=== PATIENT | female | born 1960 | race Caucasian/White ===

== ENCOUNTER → 2016-03-02 | Outpatient (CLI) | payer BC ==
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
== END ==
LOC: WI 09:00
PROVIDERS: ATTEND Family Medicine
DX: N63 Unspecified lump in breast (principal)
CPT/HCPCS: 76642; G0204; 77066

== ENCOUNTER 2016-08-13 06:18 | Inpatient (IN) | payer BC ==
--- NOTE | 2016-08-06 11:02 | EKG REPORT ---
SEVERITY:- ABNORMAL ECG - SINUS RHYTHM NONSPECIFIC T ABNORMALITIES, INFERIOR LEADS : Confirmed by: Carlene Mcrae MD 06-Aug-2016 11:01:08
--- NOTE | 2016-08-06 11:05 | RADIOLOGY REPORT (SQ) ---
EXAM DESCRIPTION: CHEST PA/LATERAL COMPLETED DATE/TIME: 08/06/2016 10:45 am REASON FOR STUDY: PRE OP COMPARISON: None. EXAM PARAMETERS: NUMBER OF VIEWS: two views TECHNIQUE: Digital Frontal and Lateral radiographic views of the chest acquired. RADIATION DOSE: NA LIMITATIONS: none FINDINGS: LUNGS AND PLEURA: No opacities, masses or pneumothorax. No pleural effusion. MEDIASTINUM AND HILAR STRUCTURES: No masses or contour abnormalities. HEART AND VASCULAR STRUCTURES: Heart normal size. No evidence for failure. BONES: No acute findings. HARDWARE: None in the chest. OTHER: No other significant finding. IMPRESSION: NO SIGNIFICANT RADIOGRAPHIC FINDING IN THE CHEST. TECHNICAL DOCUMENTATION: JOB ID: [id number] [employer]- All Rights Reserved
[2016-08-06 11:08] LABS: ABSOLUTE EOSINOPHILS # (AUTO) 0.2 10^3/uL (0.0-0.6); ABSOLUTE LYMPHOCYTES (AUTO) 2.6 10^3/uL (0.5-4.7); ABSOLUTE MONOCYTES (AUTO) 0.7 10^3/uL (0.1-1.4); ABSOLUTE NEUT (AUTO) 4.5 10^3/uL (1.7-8.2); BASOPHILS % (AUTO) 0.6 % (0-2); EOSINOPHILS % (AUTO) 2.3 % (0-6); HEMATOCRIT 39.3 % (36.0-47.0); HEMOGLOBIN 13.4 g/dL (12.0-15.5); HGB HCT DIFFERENCE 0.9; LYMPHOCYTES % (AUTO) 32.2 % (13-45); MEAN CORPUSCULAR HEMOGLOBIN 30.9 pg (27.0-33.4); MEAN CORPUSCULAR VOLUME 91 fl (80-97); MONOCYTES % (AUTO) 8.8 % (3-13); RED BLOOD COUNT 4.33 10^6/uL (3.72-5.28); SEGMENTED NEUTROPHILS % (AUTO) 56.1 % (42-78)
[2016-08-06 11:24] LABS: ANION GAP 12 (5-19); BLOOD UREA NITROGEN 21 mg/dL (7-20); CALCIUM 9.3 mg/dL (8.4-10.2); CARBON DIOXIDE 25 mmol/L (22-30); CHLORIDE 103 mmol/L (98-107); CREATININE RESULT 0.64 mg/dL (0.52-1.25); GLUCOSE 108 mg/dL (75-110); POTASSIUM 4.6 mmol/L (3.6-5.0)
[2016-08-06 12:10] LABS: APPEARANCE,URINE CLOUDY; BILIRUBIN,URINE NEGATIVE (NEGATIVE); GLUCOSE, URINE NEGATIVE (NEGATIVE); KETONES,URINE NEGATIVE (NEGATIVE); URINE SPECIFIC GRAVITY 1.024
[2016-08-06 12:11] LABS: BACTERIA,URINE 3+ /HPF; LEUKOCYTE ESTERASE,URINE NEGATIVE (NEGATIVE); NITRITE,URINE NEGATIVE (NEGATIVE); PROTEIN,URINE NEGATIVE (NEGATIVE); RBC,URINE NONE SEEN /HPF; UROBILINOGEN,URINE NEGATIVE mg/dL (<2.0)
[~2016-08-13 06:18] MED LIST: CEFAZOLIN 2 GM/D5W RTU 2 GM/50 ML RTUPB IV PRN; LACTATED RINGERS 1000 ML IV PRN; LIDOCAINE 0.5% INJ-PF (5 MG/ML) 50 ML SDV SUBCUT PRN
[2016-08-13] MEDS ORDERED: MIDAZOLAM 2 MG/2 ML INJ ONE (12:24)
[2016-08-13] MEDS ORDERED: MORPHINE SULFATE 10 MG/ML INJ ONE ×2 (12:25→14:58)
[2016-08-13] MEDS ORDERED: IBUPROFEN INJ 800 MG/8 ML VIAL IV ONE (12:25)
[2016-08-13] MEDS ORDERED: PROPOFOL INJ 200 MG/20 ML VIAL IV ONE (12:25)
[2016-08-13] MEDS ORDERED: PROMETHAZINE HCL INJ 25 MG/1 ML VIAL IV PRN ×2 (15:20)
[2016-08-13] MEDS ORDERED: MORPHINE SULFATE 10 MG/ML INJ IV PRN ×4 (15:20→17:02)
[2016-08-13] MEDS ORDERED: MEPERIDINE HCL/PF INJ 25 MG/1 ML DISP.SYRIN IV PRN (15:20)
[2016-08-13] MEDS ORDERED: OXYCODONE-ACETAMINOPHEN 5-325 MG TABLET PO PRN ×2 (15:20)
[2016-08-13] MEDS ORDERED: FENTANYL CITRATE INJ/PF 100 MCG/2 ML AMPUL IV PRN ×3 (15:20)
[2016-08-13] MEDS ORDERED: DIPHENHYDRAMINE HCL 50 MG/ML VIAL IV PRN ×2 (15:20→17:02)
[2016-08-13] MEDS ORDERED: ONDANSETRON 4 MG TAB.RAPDIS PO PRN (17:02)
[2016-08-13] MEDS ORDERED: MORPHINE SULFATE 10 MG/ML INJ IM PRN (17:02)
--- NOTE | 2016-08-13 17:09 | Brief Operative Note ---
BRIEF OPERATIVE REPORT DATE OF SURGERY: 08/13/16 TIME OF SURGERY: 17:07 PREOPERATIVE DIAGNOSIS: Left Femoral Shaft Nonunion POSTOPERATIVE DIAGNOSIS: Same SURGEON: DENYS WEISS FINDINGS: Nonunion fx site w/ micromotion COMPLICATIONS: None ESTIMATED BLOOD LOSS: 400cc TISSUE REMOVED OR ALTERED: None TECHNICAL PROCEDURE: Removal Hardware Left Femur w/ Revision Intramedullary Nailing (i.e. exchange nailing)
[2016-08-13] MEDS ORDERED: DEXAMETHASONE SOD PHOS INJ 10 MG/1 ML VIAL ONE (17:32)
[2016-08-13] MEDS ORDERED: ACETAMINOPHEN 100 ML IV ONE ×2 (17:52→23:00)
[2016-08-13] MEDS ORDERED: CYANOCOBALAMIN (VITAMIN B-12) 1,000 MCG TABLET PO PRN (18:00)
--- NOTE | 2016-08-13 18:00 | RADIOLOGY REPORT (SQ) ---
EXAM DESCRIPTION: NO CHG FLUORO; FEMUR LEFT COMPLETED DATE/TIME: 08/13/2016 5:48 pm REASON FOR STUDY: ORIF W/GAMMA NAIL LT FEMUR COMPARISON: None. FLUOROSCOPY TIME: 4.8 minutes RADIATION DOSE: 78.1 mGy LIMITATIONS: None. PROCEDURE: 10 images obtained with fluoro document the open reduction and internal fixation of the d istal left femoral fracture. FINDINGS: Long medullary hermes is in place, secured by 2 cannulated screws through the femoral neck. 2 additional screws are present in the femoral metaphysis. IMPRESSION: Open reduction and internal fixation of distal left femoral fracture. COMMENT: [id number]: Fluoroscopy time of the procedure is documented in the report. TECHNICAL DOCUMENTATION: JOB ID: [id number] [employer]- All Rights Reserved
--- NOTE | 2016-08-13 18:00 | RADIOLOGY REPORT (SQ) ---
EXAM DESCRIPTION: NO CHG FLUORO; FEMUR LEFT COMPLETED DATE/TIME: 08/13/2016 5:48 pm REASON FOR STUDY: ORIF W/GAMMA NAIL LT FEMUR COMPARISON: None. FLUOROSCOPY TIME: 4.8 minutes RADIATION DOSE: 78.1 mGy LIMITATIONS: None. PROCEDURE: 10 images obtained with fluoro document the open reduction and internal fixation of the d istal left femoral fracture. FINDINGS: Long medullary hermes is in place, secured by 2 cannulated screws through the femoral neck. 2 additional screws are present in the femoral metaphysis. IMPRESSION: Open reduction and internal fixation of distal left femoral fracture. COMMENT: [id number]: Fluoroscopy time of the procedure is documented in the report. TECHNICAL DOCUMENTATION: JOB ID: [id number] [employer]- All Rights Reserved
[2016-08-13] MEDS ORDERED: PHENYLEPHRINE HCL INJ/PF 10 MG/1 ML SDV ONE (18:55)
[2016-08-13] MEDS ORDERED: METOCLOPRAMIDE HCL INJ/PF 10 MG/2 ML SDV ONE (18:55)
[2016-08-13] MEDS ORDERED: ONDANSETRON HCL INJ/PF 4 MG/2 ML SDV ONE (18:55)
[2016-08-13] MEDS ORDERED: NEOSTIGMINE METHYLSULFATE 10 MG/10 ML VIAL ONE (18:55)
[2016-08-13] MEDS ORDERED: LIDOCAINE 2% INJ-PF (20 MG/ML) 10 ML AMPUL ONE (18:55)
[2016-08-13] MEDS ORDERED: GLYCOPYRROLATE INJ 0.4 MG/2 ML VIAL ONE (18:55)
[2016-08-13] MEDS: RIVAROXABAN 10 MG TABLET PO SCH (22:28)
[2016-08-13] MEDS: ATORVASTATIN CALCIUM 40 MG TABLET PO SCH (22:38)
[2016-08-13] MEDS: CEFAZOLIN 2 GM/D5W RTU 2 GM/50 ML RTUPB IV SCH (22:39)
[2016-08-13] MEDS: RINGERS SOLUTION,LACTATED 1,000 ML IV PRN (22:39)
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
[2016-08-14] MEDS: OXYCODONE HCL SR 10 MG TABLET PO SCH ×4 (01:23→22:00)
[2016-08-14] MEDS: CEFAZOLIN 2 GM/D5W RTU 2 GM/50 ML RTUPB IV SCH ×4 (04:20→21:16)
[2016-08-14] MEDS: OXYCODONE HCL IR 5 MG TABLET PO PRN (04:20)
[2016-08-14] MEDS: LANSOPRAZOLE 30 MG TAB.RAP.DR PO SCH (06:10)
[2016-08-14] MEDS: RINGERS SOLUTION,LACTATED 1,000 ML IV PRN ×2 (06:16→17:58)
[2016-08-14 06:27] LABS: HEMATOCRIT 31.7 % (36.0-47.0); HEMOGLOBIN 10.5 g/dL (12.0-15.5); HGB HCT DIFFERENCE -0.2; MEAN CORPUSCULAR HEMOGLOBIN 30.4 pg (27.0-33.4); MEAN CORPUSCULAR HGB CONC 33.2 g/dL (32.0-36.0); MEAN CORPUSCULAR VOLUME 92 fl (80-97); RED BLOOD COUNT 3.46 10^6/uL (3.72-5.28); RED CELL DISTRIBUTION WIDTH 13.7 % (11.5-14.0); WHITE BLOOD COUNT 10.9 10^3/uL (4.0-10.5)
[2016-08-14 06:46] LABS: ANION GAP 11 (5-19); BLOOD UREA NITROGEN 19 mg/dL (7-20); CALCIUM 8.6 mg/dL (8.4-10.2); CARBON DIOXIDE 23 mmol/L (22-30); CHLORIDE 102 mmol/L (98-107); CREATININE RESULT 0.67 mg/dL (0.52-1.25); GLUCOSE 152 mg/dL (75-110); POTASSIUM 4.4 mmol/L (3.6-5.0); SODIUM 135.7 mmol/L (137-145)
[2016-08-14] MEDS: CHOLECALCIFEROL (D3) 1,000 UNIT TABLET PO SCH (09:41)
[2016-08-14] MEDS: FLUTICASONE/SALMETEROL DISKUS 250-50 MCG/DOSE IH SCH ×2 (09:41→17:55)
[2016-08-14] MEDS: FERROUS SULFATE 325 MG TABLET PO SCH ×2 (09:41→17:55)
[2016-08-14] MEDS: PREGABALIN 75 MG CAPSULE PO SCH ×2 (09:41→17:55)
[2016-08-14] MEDS: HYDROCHLOROTHIAZIDE 12.5 MG CAPSULE PO SCH (09:56)
[2016-08-14] MEDS: LISINOPRIL 10 MG TABLET PO SCH (09:56)
[2016-08-14] MEDS: MUPIROCIN 2% OINTMENT 22 GM TP SCH ×3 (09:56→17:56)
[2016-08-14] MEDS ORDERED: (PENDING PHARMACY ID) (Lisinopril/Hydrochlorothiazide [Lisinopril-Hctz 20-12.5 Mg Tab] 2 E PO SCH (10:00)
[2016-08-14] MEDS ORDERED: CHOLECALCIFEROL (D3) 1,000 UNIT TABLET PO SCH (10:00)
--- NOTE | 2016-08-14 10:37 | PDOC PROGRESS REPORT ---
Subjective Progress Note for:: 08/14/16 Subjective:: Patient seen this AM. Pain controlled. Patient's blood pressure has been running low but she denies headache dizziness or loss of consciousness. Physical Exam Vital Signs: Temp Pulse Resp BP Pulse Ox 98.1 F 80 16 99/40 L 92 08/14/16 08:01 08/14/16 08:01 08/14/16 08:01 08/14/16 08:01 08/14/16 08:01 Pulse Oximeter Continuous Start: 08/13/16 19: 50 Freq: RTQ4 Status: Active Document 08/14/16 04:23 TPO (Rec: 08/14/16 04:23 TPO [email or web address]) Pulse Oximetry Assessment Oxygen Saturation (92-100) 96 Oxygen Flow Rate (L/min) 2 Oxygen Delivery Method Nasal Cannula Fraction of Inspired Oxygen (FIO2) 28 Equipment Usage Equipment in Use Continuous SpO2 Machine # [id number] Intake & Output 08/13/16 08/14/16 08/15/16 06:59 06:59 06:59 Intake Total 3050 Output Total 2300 Balance 750 Weight 131.9 kg Musculoskeletal exam: PRESENT: other - Right lower extremity: Dressing clean/dry /intact. Blood-tinged drainage. Intact plantar flexion/dorsiflexion. No calf tenderness Results Laboratory Results: 08/14/16 05:55 08/14/16 05:55 08/13/16 08/13/16 08/14/16 11:05 14:37 05:55 WBC 10.9 H RBC 3.46 L Hgb 10.5 L Hct 31.7 L MCV 92 MCH 30.4 MCHC 33.2 RDW 13.7 Plt Count 220 Sodium Potassium 4.3 Chloride Carbon Dioxide Anion Gap BUN Creatinine Est GFR ( Amer) Est GFR (Non-Af Amer) Glucose Calcium Blood Type A POSITIVE Antibody Screen NEGATIVE 08/14/16 05:55 WBC RBC Hgb Hct MCV MCH MCHC RDW Plt Count Sodium 135.7 L Potassium 4.4 Chloride 102 Carbon Dioxide 23 Anion Gap 11 BUN 19 Creatinine 0.67 Est GFR ( Amer) > 60 Est GFR (Non-Af Amer) > 60 Glucose 152 H Calcium 8.6 Blood Type Antibody Screen Impressions: Chest X-Ray 08/06/16 10:34 IMPRESSION: NO SIGNIFICANT RADIOGRAPHIC FINDING IN THE CHEST. Femur X-Ray 08/13/16 00:00 IMPRESSION: Open reduction and internal fixation of distal left femoral fracture. Fluoroscopy 08/13/16 00:00 IMPRESSION: Open reduction and internal fixation of distal left femoral fracture. Assessment & Plan - Diagnosis (1) Femur fracture, left Qualifiers: Encounter type: subsequent encounter Femur location: shaft Fracture type: closed Fracture morphology: comminuted Fracture alignment : displaced Fracture healing: with nonunion Qualified Code(s): S72.352K - Displaced comminuted fracture of shaft of left femur, subsequent encounter for closed fracture with nonunion Is this a current diagnosis for this admission?: YesPlan: Postop day #1 status post revision intramedullary nailing left femoral shaft fracture #1 physical therapy flatfoot weightbearing #2 acute on chronic blood loss anemia hemoglobin and hematocrit currently stable #3 Xarelto for DVT prophylaxis #4 discharge planning patient will require home health anticipate discharge Tuesday.
[2016-08-14] MEDS: RIVAROXABAN 10 MG TABLET PO SCH (21:16)
[2016-08-14] MEDS: ATORVASTATIN CALCIUM 40 MG TABLET PO SCH (21:16)
[2016-08-15] MEDS: CEFAZOLIN 2 GM/D5W RTU 2 GM/50 ML RTUPB IV SCH ×4 (04:05→21:18)
[2016-08-15] MEDS: LANSOPRAZOLE 30 MG TAB.RAP.DR PO SCH (06:22)
[2016-08-15 07:39] LABS: HEMATOCRIT 27.6 % (36.0-47.0); HEMOGLOBIN 8.9 g/dL (12.0-15.5); HGB HCT DIFFERENCE -0.9; MEAN CORPUSCULAR HEMOGLOBIN 29.9 pg (27.0-33.4); MEAN CORPUSCULAR HGB CONC 32.2 g/dL (32.0-36.0); MEAN CORPUSCULAR VOLUME 93 fl (80-97); RED BLOOD COUNT 2.97 10^6/uL (3.72-5.28); RED CELL DISTRIBUTION WIDTH 13.9 % (11.5-14.0); WHITE BLOOD COUNT 12.1 10^3/uL (4.0-10.5)
[2016-08-15] MEDS: FERROUS SULFATE 325 MG TABLET PO SCH ×2 (08:37→17:04)
[2016-08-15] MEDS: PREGABALIN 75 MG CAPSULE PO SCH ×2 (10:24→17:04)
[2016-08-15] MEDS: OXYCODONE HCL IR 5 MG TABLET PO PRN (10:24)
[2016-08-15] MEDS: FLUTICASONE/SALMETEROL DISKUS 250-50 MCG/DOSE IH SCH ×2 (10:24→17:04)
[2016-08-15] MEDS: CHOLECALCIFEROL (D3) 1,000 UNIT TABLET PO SCH (10:24)
[2016-08-15] MEDS: LISINOPRIL 10 MG TABLET PO SCH (10:32)
[2016-08-15] MEDS: MUPIROCIN 2% OINTMENT 22 GM TP SCH ×3 (10:32→17:02)
[2016-08-15] MEDS: HYDROCHLOROTHIAZIDE 12.5 MG CAPSULE PO SCH (10:32)
[2016-08-15] MEDS: RIVAROXABAN 10 MG TABLET PO SCH (21:18)
[2016-08-15] MEDS: ATORVASTATIN CALCIUM 40 MG TABLET PO SCH (21:18)
[2016-08-16] MEDS: CEFAZOLIN 2 GM/D5W RTU 2 GM/50 ML RTUPB IV SCH ×2 (03:27→08:54)
[2016-08-16] MEDS: LANSOPRAZOLE 30 MG TAB.RAP.DR PO SCH (05:51)
[2016-08-16 06:48] LABS: HEMATOCRIT 26.4 % (36.0-47.0); HEMOGLOBIN 8.8 g/dL (12.0-15.5); MEAN CORPUSCULAR HEMOGLOBIN 30.2 pg (27.0-33.4); MEAN CORPUSCULAR HGB CONC 33.3 g/dL (32.0-36.0); MEAN CORPUSCULAR VOLUME 91 fl (80-97); RED BLOOD COUNT 2.91 10^6/uL (3.72-5.28); RED CELL DISTRIBUTION WIDTH 13.9 % (11.5-14.0); WHITE BLOOD COUNT 10.2 10^3/uL (4.0-10.5)
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
[2016-08-16] MEDS: PREGABALIN 75 MG CAPSULE PO SCH (09:21)
[2016-08-16] MEDS: HYDROCHLOROTHIAZIDE 12.5 MG CAPSULE PO SCH (09:22)
[2016-08-16] MEDS: CHOLECALCIFEROL (D3) 1,000 UNIT TABLET PO SCH (09:22)
[2016-08-16] MEDS: LISINOPRIL 10 MG TABLET PO SCH (09:24)
[2016-08-16] MEDS: FERROUS SULFATE 325 MG TABLET PO SCH (09:24)
[2016-08-16] MEDS: FLUTICASONE/SALMETEROL DISKUS 250-50 MCG/DOSE IH SCH (09:25)
[2016-08-16] MEDS: MUPIROCIN 2% OINTMENT 22 GM TP SCH ×2 (09:26→13:03)
[2016-08-16 10:16] VITALS: BP 107/48
== END 2016-08-16 15:00 | disposition home health service (06) | DRG 499 ==
LOC: INOR 10:18 → EDSTATUS 12:30 → 4S 18:39
PROVIDERS: ADMIT Orthopaedic Surgery; ATTEND Orthopaedic Surgery
PROC: 0QW Lower Bones, Revision (ICD-10-PCS; principal; 2016-08-13 12:30)
DX: T84.195A Other mechanical complication of internal fixation device of left femur, initial encounter (principal); I10 Essential (primary) hypertension; E78.5 Hyperlipidemia, unspecified; G47.9 Sleep disorder, unspecified; Z79.899 Other long term (current) drug therapy; Z90.710 Acquired absence of both cervix and uterus
CPT/HCPCS: 01230; 36415; 71020; 80048; 81001; 84132; 85025; 85027; 86850; 86900; 86901; 93005; 93010; 94762; 94799; J0131; J0690; J1100; J1741; J2250; J2270; J2370; J2405; J2704; J2765; J3490; J7120

== ENCOUNTER 2019-01-12 18:11 | Emergency (ER) | payer BC, MEDICARE ==
--- NOTE | 2019-01-12 20:02 | ER Document Report ---
ED Medical Screen (RME) - General Chief Complaint: Chest Pain Stated Complaint: CHEST PAIN Time Seen by Provider: 01/12/19 19:53 Primary Care Provider: GREYSON LOZANO MD [Primary Care Provider] - Follow up as needed Notes: 58-year-old female with hypertension, hyperlipidemia, prediabetes who is morbidly obese presents to the emergency department with right-sided stabbing chest pain that radiates through to her back x2 days. Patient had a little associated nausea yesterday with no vomiting, no diaphoresis, no shortness of breath or dyspnea on exertion, unaware of her family history because she was "taken away from appearance". She is not a smoker Exam: Well-appearing no acute distress, lungs clear to auscultation in all christiansen, regular cardiac rate and rhythm no murmurs heard, no reproducible chest wall pain I have greeted and performed a rapid initial assessment of this patient. A comprehensive ED assessment and evaluation of the patient, analysis of test results and completion of medical decision making process will be conducted by an additional ED providers. TRAVEL OUTSIDE OF THE [place] IN LAST 30 DAYS: No - Related Data Allergies/Adverse Reactions: No Known Allergies Allergy (Verified 08/04/16 11:12) Home Medications: Lisinopril/ HCTZ 20-12mg. Meloxicam. Atorvastatin. Fluoxetine. Vit D. Metformin Past Medical History - Social History Frequency of alcohol use: None Drug Abuse: None - Past Medical History Cardiac Medical History: Reports: Hx Hypercholesterolemia, Hx Hypertension - meds x 2 years Denies: Hx Coronary Artery Disease, Hx Heart Attack Pulmonary Medical History: Reports: Hx Asthma Denies: Hx Bronchitis, Hx COPD, Hx Pneumonia Neurological Medical History: Denies: Hx Cerebrovascular Accident, Hx Seizures Musculoskeltal Medical History: Reports Hx Arthritis Psychiatric Medical History: Denies: Hx Depression Past Surgical History: Reports: Hx Hysterectomy. Denies: Hx Pacemaker - Immunizations Hx Diphtheria, Pertussis, Tetanus Vaccination: No Physical Exam - Vital signs Vitals: Temp Pulse Resp BP Pulse Ox 98.3 F 86 18 163/75 H 96 01/12/19 19:00 01/12/19 19:00 01/12/19 19:00 01/12/19 19:00 01/12/19 19:00 Course - Vital Signs Vital signs: Temp Pulse Resp BP Pulse Ox 98.3 F 86 18 163/75 H 96 01/12/19 19:00 01/12/19 19:00 01/12/19 19:00 01/12/19 19:00 01/12/19 19:00 Doctor's Discharge - Discharge Referrals: GREYSON LOZANO MD [Primary Care Provider] - Follow up as needed
--- NOTE | 2019-01-12 21:16 | RADIOLOGY REPORT (SQ) ---
EXAM DESCRIPTION: [facility]: XR CHEST 2 VIEWS Views: 2 CLINICAL HISTORY: 58 years Female, chest pain COMPARISON: 08/06/2016 FINDINGS: The lungs are clear. No pneumothorax or significant pleural effusion. Cardiomediastinal silhouette is within normal limits. Bony structures are unremarkable for age. IMPRESSION: 1. No acute cardiothoracic abnormality.
[2019-01-12 21:21] LABS: ABSOLUTE BASOPHILS # (AUTO) 0.1 10^3/uL (0.0-0.2); ABSOLUTE EOSINOPHILS # (AUTO) 0.2 10^3/uL (0.0-0.6); ABSOLUTE LYMPHOCYTES (AUTO) 3.8 10^3/uL (0.5-4.7); ABSOLUTE MONOCYTES (AUTO) 0.9 10^3/uL (0.1-1.4); ABSOLUTE NEUT (AUTO) 5.2 10^3/uL (1.7-8.2); BASOPHILS % (AUTO) 0.5 % (0-2); EOSINOPHILS % (AUTO) 1.9 % (0-6); HEMATOCRIT 41.4 % (36.0-47.0); LYMPHOCYTES % (AUTO) 37.6 % (13-45); MEAN CORPUSCULAR HEMOGLOBIN 30.7 pg (27.0-33.4); MEAN CORPUSCULAR HGB CONC 33.9 g/dL (32.0-36.0); MEAN CORPUSCULAR VOLUME 91 fl (80-97); MONOCYTES % (AUTO) 8.9 % (3-13); PLATELET COUNT 275 10^3/uL (150-450); RED BLOOD COUNT 4.57 10^6/uL (3.72-5.28); RED CELL DISTRIBUTION WIDTH 13.5 % (11.5-14.0); SEGMENTED NEUTROPHILS % (AUTO) 51.1 % (42-78); TOTAL CELLS COUNTED % (AUTO) 100 %; WHITE BLOOD COUNT 10.1 10^3/uL (4.0-10.5)
[2019-01-12 21:34] LABS: ALBUMIN 4.7 g/dL (3.5-5.0); ALKALINE PHOSPHATASE 102 U/L (38-126); ANION GAP 17 (5-19); ASPARTATE AMINO TRANSFERASE 46 U/L (14-36); BILIRUBIN,DIRECT 0.3 mg/dL (0.0-0.4); BILIRUBIN,TOTAL 0.6 mg/dL (0.2-1.3); BLOOD UREA NITROGEN 18 mg/dL (7-20); CALCIUM 10.3 mg/dL (8.4-10.2); CARBON DIOXIDE 25 mmol/L (22-30); CHLORIDE 99 mmol/L (98-107); GLUCOSE 135 mg/dL (75-110); POTASSIUM 4.4 mmol/L (3.6-5.0); TOTAL PROTEIN 8.2 g/dL (6.3-8.2)
[2019-01-12] MEDS ORDERED: ASPIRIN 325 MG TABLET PO ONE (22:11)
[2019-01-13 01:23] VITALS: BP 117/39
--- NOTE | 2019-01-13 01:27 | ER Document Report ---
ED General - General Chief Complaint: Chest Pain Stated Complaint: CHEST PAIN Time Seen by Provider: 01/12/19 19:53 Primary Care Provider: GREYSON LOZANO MD [Primary Care Provider] - Follow up as needed Notes: Patient is a 58-year-old female presents to the emergency department with right- sided sharp chest pain. States it started today. States it is intermittent in nature and she currently does not have it. States sometimes she feels as though it is in her right shoulder blade. Patient's denying any increase in pain with rotation or movement of her right shoulder. She is denying any injury or falls. States she does have a history of hypertension, hyperlipidemia, asthma. States she was told she was prediabetic but is not taking any medications for same. Patient's denying a smoking history. States she did have a stress test "years ago." Has never had a cardiac catheterization. TRAVEL OUTSIDE OF THE [place] IN LAST 30 DAYS: No - Related Data Allergies/Adverse Reactions: No Known Allergies Allergy (Verified 08/04/16 11:12) Home Medications: Lisinopril/ HCTZ 20-12mg. Meloxicam. Atorvastatin. Fluo xetine. Vit D. Metformin Past Medical History - General Information source: Patient - Social History Smoking Status: Never Smoker Frequency of alcohol use: None Drug Abuse: None Family History: Reviewed & Not Pertinent Patient has suicidal ideation: No Patient has homicidal ideation: No - Past Medical History Cardiac Medical History: Reports: Hx Hypercholesterolemia, Hx Hypertension - meds x 2 years Denies: Hx Coronary Artery Disease, Hx Heart Attack Pulmonary Medical History: Reports: Hx Asthma Denies: Hx Bronchitis, Hx COPD, Hx Pneumonia Neurological Medical History: Denies: Hx Cerebrovascular Accident, Hx Seizures Musculoskeletal Medical History: Reports Hx Arthritis Psychiatric Medical History: Denies: Hx Depression Past Surgical History: Reports: Hx Hysterectomy. Denies: Hx Pacemaker - Immunizations Hx Diphtheria, Pertussis, Tetanus Vaccination: No Review of Systems - Review of Systems Constitutional: denies: Fever EENT: No symptoms reported Cardiovascular: See HPI Respiratory: No symptoms reported Gastrointestinal: No symptoms reported Genitourinary: No symptoms reported Female Genitourinary: No symptoms reported Musculoskeletal: See HPI Skin: No symptoms reported Hematologic/Lymphatic: No symptoms reported Neurological/Psychological: No symptoms reported Physical Exam - Vital signs Vitals: Temp Pulse Resp BP Pulse Ox 98.3 F 86 18 163/75 H 96 01/12/19 19:00 01/12/19 19:00 01/12/19 19:00 01/12/19 19:00 01/12/19 19:00 - Notes Notes: GENERAL: Alert, interacts well. No acute distress. HEAD: Normocephalic, atraumatic. EYES: Pupils equal, round, and reactive to light. Extraocular movements intact. ENT: Oral mucosa moist, tongue midline. NECK: Full range of motion. Supple. Trachea midline. LUNGS: Clear to auscultation bilaterally, no wheezes, rales, or rhonchi. No respiratory distress. HEART: Regular rate and rhythm. No murmur ABDOMEN: Morbidly obese, soft, non-tender. Non-distended. Bowel sounds present in all 4 quadrants. EXTREMITIES: Moves all 4 extremities spontaneously. No edema, normal radial and dorsalis pedis pulses bilaterally. No cyanosis. BACK: no cervical, thoracic, lumbar midline tenderness. No saddle anesthesia, normal distal neurovascular exam. NEUROLOGICAL: Alert and oriented x3. Normal speech. cranial nerves II through XII grossly intact PSYCH: Normal affect, normal mood. SKIN: Warm, dry, normal turgor. No rashes or lesions noted. Course - Re-evaluation Re-evalutation: Laboratory 01/12/19 01/12/19 01/12/19 21:05 21:05 21:05 WBC 10.1 RBC 4.57 Hgb 14.0 Hct 41.4 MCV 91 MCH 30.7 MCHC 33.9 RDW 13.5 Plt Count 275 Lymph % (Auto) 37.6 Bacon % (Auto) 8.9 Eos % (Auto) 1.9 Baso % (Auto) 0.5 Absolute Neuts (auto) 5.2 Absolute Lymphs (auto) 3.8 Absolute Monos (auto) 0.9 Absolute Eos (auto) 0.2 Absolute Basos (auto) 0.1 Seg Neutrophils % 51.1 Sodium 140.7 Potassium 4.4 Chloride 99 Carbon Dioxide 25 Anion Gap 17 BUN 18 Creatinine 0.73 Est GFR ( Amer) > 60 Est GFR (MDRD) Non-Af > 60 Glucose 135 H Calcium 10.3 H Total Bilirubin 0.6 Direct Bilirubin 0.3 Neonat Total Bilirubin Not Reportable Neonat Direct Bilirubin Not Reportable Neonat Indirect Bili Not Reportable AST 46 H ALT 36 Alkaline Phosphatase 102 Troponin I 0.036 Total Protein 8.2 Albumin 4.7 01/13/19 00:10 WBC RBC Hgb Hct MCV MCH MCHC RDW Plt Count Lymph % (Auto) Bacon % (Auto) Eos % (Auto) Baso % (Auto) Absolute Neuts (auto) Absolute Lymphs (auto) Absolute Monos (auto) Absolute Eos (auto) Absolute Basos (auto) Seg Neutrophils % Sodium Potassium Chloride Carbon Dioxide Anion Gap BUN Creatinine Est GFR ( Amer) Est GFR (MDRD) Non-Af Glucose Calcium Total Bilirubin Direct Bilirubin Neonat Total Bilirubin Neonat Direct Bilirubin Neonat Indirect Bili AST ALT Alkaline Phosphatase Troponin I 0.029 Total Protein Albumin Chest X-Ray 01/12/19 19:59 IMPRESSION: 1. No acute cardiothoracic abnormality. Patient's initial troponin was noted to be 0.036, repeat troponin was 0.029. Patient's EKG shows a sinus rhythm rate of 78, QTc 429, no ST segment elevations or depressions noted. Patient is a heart score of 3 based on her age and risk factors. I discussed with her close follow-up with primary care provider and cardiology. Of also discussed should the pain resurface she should immediately return to the emergency department. Patient stable for discharge. - Vital Signs Vital signs: Temp Pulse Resp BP Pulse Ox 98.3 F 86 19 117/39 L 97 01/12/19 19:00 01/12/19 19:00 01/13/19 01:01 01/13/19 01:01 01/13/19 01:01 - Laboratory Result Diagrams: 01/12/19 21:05 01/12/19 21:05 Laboratory results interpreted by me: 01/12/19 21:05 Glucose 135 H Calcium 10.3 H AST 46 H Discharge - Discharge Clinical Impression: Chest pain Qualifiers: Chest pain type: unspecified Qualified Code(s): R07.9 - Chest pain, unspecified Condition: Stable Disposition: HOME, SELF-CARE Instructions: Chest Pain of Unclear Cause ([facility]) Additional Instructions: As we discussed you have been seen and treated in the emergency department for your chest pain. Please follow-up with your primary care provider and cardiology in the next 12 to 24 hours. 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 Please immediately return to the emergency department should your chest pain redevelop. Please also return to the emergency department for any other concerns. Referrals: GREYSON LOZANO MD [Primary Care Provider] - Follow up as needed ERICA GOMEZ MD [ACTIVE STAFF] - Follow up as needed
--- NOTE | 2019-01-13 11:43 | EKG REPORT ---
SEVERITY:- BORDERLINE ECG - SINUS RHYTHM LVH BY VOLTAGE : Confirmed by: Carlene Mcrae MD 13-Jan-2019 11:42:51
== END 2019-01-13 01:35 | disposition home or self-care (01) ==
LOC: ER 18:11
DX: R07.9 Chest pain, unspecified (principal); I10 Essential (primary) hypertension; E78.5 Hyperlipidemia, unspecified; E78.00 Pure hypercholesterolemia, unspecified; J45.909 Unspecified asthma, uncomplicated; Z79.84 Long term (current) use of oral hypoglycemic drugs; Z79.899 Other long term (current) drug therapy
CPT/HCPCS: 93005; 36415; 85025; 80053; 84484; 71046; 93010; A9270; 99285

== ENCOUNTER 2019-03-05 16:22 | Emergency (ER) | payer MEDICARE ==
[2019-03-05] MEDS ORDERED: ONDANSETRON HCL INJ/PF 4 MG/2 ML SDV IV ONE (17:20)
[2019-03-05] MEDS ORDERED: NORMAL SALINE 1000 ML 1,000 ML IV ONE (17:20)
[2019-03-05] MEDS ORDERED: MECLIZINE HCL 25 MG TABLET PO ONE (17:23)
--- NOTE | 2019-03-05 17:23 | ER Document Report ---
ED Medical Screen (RME) - General Chief Complaint: Nausea/Vomiting/Diarrhea Stated Complaint: NAUSEA,VOMITING,DIZZINESS Time Seen by Provider: 03/05/19 17:15 Primary Care Provider: GREYSON LOZANO MD [Primary Care Provider] - Follow up as needed Notes: Patient is a 58-year-old female who presents to the emergency department with a chief complaint of nausea, vomiting and diarrhea. Patient reports she woke up this morning with some intermittent dizziness. Patient reports she has had nausea with vomiting x3 and diarrhea x3. Denies sick contacts. Patient reports she just returned from [place] last night as her mother did pass away. Patient denies abdominal pain. Patient denies fever. Patient denies a history of vertigo. TRAVEL OUTSIDE OF THE [place] IN LAST 30 DAYS: No - Related Data Allergies/Adverse Reactions: No Known Allergies Allergy (Verified 08/04/16 11:12) Past Medical History - Social History Frequency of alcohol use: None Drug Abuse: None - Past Medical History Cardiac Medical History: Reports: Hx Hypercholesterolemia, Hx Hypertension - meds x 2 years Denies: Hx Coronary Artery Disease, Hx Heart Attack Pulmonary Medical History: Reports: Hx Asthma Denies: Hx Bronchitis, Hx COPD, Hx Pneumonia Neurological Medical History: Denies: Hx Cerebrovascular Accident, Hx Seizures Musculoskeltal Medical History: Reports Hx Arthritis Psychiatric Medical History: Denies: Hx Depression Past Surgical History: Reports: Hx Hysterectomy. Denies: Hx Pacemaker - Immunizations Hx Diphtheria, Pertussis, Tetanus Vaccination: No Course - Re-evaluation Re-evalutation: 03/05/19 17:22 I have greeted and performed a rapid initial assessment of this patient. A comprehensive ED assessment and evaluation of the patient, analysis of test results and completion of the medical decision making process will be conducted by additional ED providers. Doctor's Discharge - Discharge Referrals: GREYSON LOZANO MD [Primary Care Provider] - Follow up as needed
[2019-03-05 18:10] LABS: ABSOLUTE BASOPHILS # (AUTO) 0.1 10^3/uL (0.0-0.2); ABSOLUTE EOSINOPHILS # (AUTO) 0.1 10^3/uL (0.0-0.6); ABSOLUTE LYMPHOCYTES (AUTO) 1.3 10^3/uL (0.5-4.7); ABSOLUTE MONOCYTES (AUTO) 0.4 10^3/uL (0.1-1.4); ABSOLUTE NEUT (AUTO) 5.5 10^3/uL (1.7-8.2); BASOPHILS % (AUTO) 1.6 % (0-2); EOSINOPHILS % (AUTO) 0.7 % (0-6); HEMATOCRIT 40.4 % (36.0-47.0); HEMOGLOBIN 13.8 g/dL (12.0-15.5); LYMPHOCYTES % (AUTO) 18.1 % (13-45); MEAN CORPUSCULAR HEMOGLOBIN 30.4 pg (27.0-33.4); MEAN CORPUSCULAR VOLUME 89 fl (80-97); MONOCYTES % (AUTO) 5.9 % (3-13); PLATELET COUNT 270 10^3/uL (150-450); RED BLOOD COUNT 4.53 10^6/uL (3.72-5.28); RED CELL DISTRIBUTION WIDTH 13.8 % (11.5-14.0); SEGMENTED NEUTROPHILS % (AUTO) 73.7 % (42-78); TOTAL CELLS COUNTED % (AUTO) 100 %; WHITE BLOOD COUNT 7.5 10^3/uL (4.0-10.5)
--- NOTE | 2019-03-05 18:10 | ER Document Report ---
ED General - General Chief Complaint: Nausea/Vomiting/Diarrhea Stated Complaint: NAUSEA,VOMITING,DIZZINESS Time Seen by Provider: 03/05/19 17:15 Primary Care Provider: GREYSON LOZANO MD [Primary Care Provider] - Follow up as needed TRAVEL OUTSIDE OF THE [place] IN LAST 30 DAYS: No - HPI Patient complains to provider of: vomiting and vertigo Onset: This morning Onset/Duration: Sudden Quality of pain: No pain Severity: Moderate Pain Level: 0 Context: 58 year old female awoke with veritgo and then nausea and vomiting followed by loose watery stool. No fever. No abd pain. No rash. Pt has h/o htn, dm and hld. Mother recently after abdominal surgery for ischemic colitis. - Related Data Allergies/Adverse Reactions: No Known Allergies Allergy (Verified 08/04/16 11:12) Past Medical History - Social History Smoking Status: Never Smoker Frequency of alcohol use: None Drug Abuse: None Family History: Reviewed & Not Pertinent Patient has suicidal ideation: No Patient has homicidal ideation: No - Past Medical History Cardiac Medical History: Reports: Hx Hypercholesterolemia, Hx Hypertension - meds x 2 years Denies: Hx Coronary Artery Disease, Hx Heart Attack Pulmonary Medical History: Reports: Hx Asthma Denies: Hx Bronchitis, Hx COPD, Hx Pneumonia Neurological Medical History: Denies: Hx Cerebrovascular Accident, Hx Seizures Musculoskeletal Medical History: Reports Hx Arthritis Psychiatric Medical History: Denies: Hx Depression Past Surgical History: Reports: Hx Hysterectomy. Denies: Hx Pacemaker - Immunizations Hx Diphtheria, Pertussis, Tetanus Vaccination: No Review of Systems - Review of Systems Constitutional: No symptoms reported EENT: No symptoms reported Cardiovascular: No symptoms reported Respiratory: No symptoms reported Gastrointestinal: See HPI, Diarrhea, Nausea, Vomiting Genitourinary: No symptoms reported Female Genitourinary: No symptoms reported Musculoskeletal: No symptoms reported Skin: No symptoms reported Hematologic/Lymphatic: No symptoms reported Neurological/Psychological: No symptoms reported Physical Exam - Vital signs Interpretation: Normal - General General appearance: Appears well, Alert - HEENT Head: Normocephalic, Atraumatic Eyes: Normal Pupils: PERRL - Respiratory Respiratory status: No respiratory distress Chest status: Nontender Breath sounds: Normal Chest palpation: Normal - Cardiovascular Rhythm: Regular Heart sounds: Normal auscultation Murmur: No - Abdominal Inspection: Normal Distension: No distension Bowel sounds: Normal Tenderness: Nontender Organomegaly: No organomegaly - Back Back: Normal, Nontender - Extremities General upper extremity: Normal inspection, Nontender, Normal color, Normal ROM, Normal temperature General lower extremity: Normal inspection, Nontender, Normal color, Normal ROM, Normal temperature, Normal weight bearing. No: Luzma's sign - Neurological Neuro grossly intact: Yes Cognition: Normal Orientation: AAOx4 [place] Coma Scale Eye Opening: Spontaneous Eyad Coma Scale Verbal: Oriented Eyad Coma Scale Motor: Obeys Commands [place] Coma Scale Total: 15 Speech: Normal Motor strength normal: LUE, RUE, LLE, RLE Sensory: Normal - Psychological Associated symptoms: Normal affect, Normal mood - Skin Skin Temperature: Warm Skin Moisture: Dry Skin Color: Normal Course - Re-evaluation Re-evalutation: 03/05/19 18:08 MDM 58 year old female has symptoms of viral illness. She looks nontoxic. No abd pain with the nause and vomiting and loose stool. No travel and no bad food and no blood in stool or abd pain. 03/05/19 19:53 Pt feels improved after ivf and meds - zofran and antivert. We discussed follow up and she expressed understanding 03/05/19 19:55 - Laboratory Result Diagrams: 03/05/19 17:53 03/05/19 17:53 Laboratory results interpreted by me: 03/05/19 17:53 Chloride 97 L Creatinine 0.50 L Glucose 160 H Direct Bilirubin 0.5 H AST 60 H Discharge - Discharge Clinical Impression: Enteritis Condition: Good Disposition: HOME, SELF-CARE Instructions: Vomiting ([facility]), Antinausea Medication ([facility]), Intravenous (IV) Fluids ([facility]), Clear Liquid Diet ([facility]) Additional Instructions: Clear liquids for 24 hours. Rest. Medicines as directed. See your doctor in follow up. Please return here for any problems or any concerns including but limited to fever, abdominal pain persistent vomiting. Referrals: GREYSON LOZANO MD [Primary Care Provider] - Follow up as needed
[2019-03-05 18:31] LABS: ALBUMIN 4.4 g/dL (3.5-5.0); ALKALINE PHOSPHATASE 90 U/L (38-126); ANION GAP 13 (5-19); ASPARTATE AMINO TRANSFERASE 60 U/L (14-36); BILIRUBIN,DIRECT 0.5 mg/dL (0.0-0.4); BILIRUBIN,TOTAL 0.8 mg/dL (0.2-1.3); BLOOD UREA NITROGEN 18 mg/dL (7-20); CALCIUM 9.6 mg/dL (8.4-10.2); CARBON DIOXIDE 27 mmol/L (22-30); CHLORIDE 97 mmol/L (98-107); GLUCOSE 160 mg/dL (75-110); POTASSIUM 4.7 mmol/L (3.6-5.0)
[2019-03-05 19:10] LABS: APPEARANCE,URINE CLEAR; BILIRUBIN,URINE NEGATIVE (NEGATIVE); COLOR,URINE YELLOW; GLUCOSE, URINE NEGATIVE (NEGATIVE); KETONES,URINE NEGATIVE (NEGATIVE); LEUKOCYTE ESTERASE,URINE NEGATIVE (NEGATIVE); NITRITE,URINE NEGATIVE (NEGATIVE); PROTEIN,URINE NEGATIVE (NEGATIVE); URINE SPECIFIC GRAVITY 1.014; UROBILINOGEN,URINE NEGATIVE mg/dL (<2.0)
[2019-03-05 20:05] VITALS: BP 132/60
== END 2019-03-05 20:07 | disposition home or self-care (01) ==
LOC: ER 16:22
DX: K52.9 Noninfective gastroenteritis and colitis, unspecified (principal); R42 Dizziness and giddiness; R11.2 Nausea with vomiting, unspecified; I10 Essential (primary) hypertension; E11.9 Type 2 diabetes mellitus without complications; J45.909 Unspecified asthma, uncomplicated; Z83.79 Family history of other diseases of the digestive system
CPT/HCPCS: 99284; 96361; 96374; 36415; 85025; 80053; 81001; A9270; J2405; J7030

== ENCOUNTER → 2020-03-19 | Outpatient (CLI) | payer MEDICARE ==
--- NOTE | 2020-03-19 15:24 | RADIOLOGY REPORT (SQ) ---
EXAM DESCRIPTION: CHEST 2 VIEWS IMAGES COMPLETED DATE/TIME: 03/19/2020 3:13 pm REASON FOR STUDY: (E66.01)MORBID (SEVERE) OBESITY DUE TO EXCESS CALORIES COMPARISON: 01/12/2019 EXAM PARAMETERS: NUMBER OF VIEWS: two views TECHNIQUE: Digital Frontal and Lateral radiographic views of the chest acquired. RADIATION DOSE: NA LIMITATIONS: none FINDINGS: LUNGS AND PLEURA: No opacities, masses or pneumothorax. No pleural effusion. MEDIASTINUM AND HILAR STRUCTURES: No masses or contour abnormalities. HEART AND VASCULAR STRUCTURES: Heart normal size. No evidence for failure. BONES: No acute findings. HARDWARE: None in the chest. OTHER: No other significant finding. IMPRESSION: NO ACUTE RADIOGRAPHIC FINDING IN THE CHEST. TECHNICAL DOCUMENTATION: JOB ID: [id number] 2010 [employer]- All Rights Reserved Reading location - IP/workstation name: [email or web address]
[2020-03-19 15:30] LABS: ABSOLUTE EOSINOPHILS # (AUTO) 0.2 10^3/uL (0.0-0.6); ABSOLUTE LYMPHOCYTES (AUTO) 2.7 10^3/uL (0.5-4.7); ABSOLUTE MONOCYTES (AUTO) 0.5 10^3/uL (0.1-1.4); BASOPHILS % (AUTO) 0.3 % (0-2); EOSINOPHILS % (AUTO) 2.9 % (0-6); HEMATOCRIT 37.1 % (36.0-47.0); HEMOGLOBIN 12.5 g/dL (12.0-15.5); LYMPHOCYTES % (AUTO) 36.5 % (13-45); MEAN CORPUSCULAR HEMOGLOBIN 29.8 pg (27.0-33.4); MEAN CORPUSCULAR HGB CONC 33.7 g/dL (32.0-36.0); MEAN CORPUSCULAR VOLUME 88 fl (80-97); MONOCYTES % (AUTO) 6.6 % (3-13); PLATELET COUNT 229 10^3/uL (150-450); RED BLOOD COUNT 4.19 10^6/uL (3.72-5.28); RED CELL DISTRIBUTION WIDTH 13.7 % (11.5-14.0); SEGMENTED NEUTROPHILS % (AUTO) 53.7 % (42-78); TOTAL CELLS COUNTED % (AUTO) 100 %; WHITE BLOOD COUNT 7.5 10^3/uL (4.0-10.5)
== END ==
LOC: OD 14:34
PROVIDERS: ATTEND Surgery
DX: I10 Essential (primary) hypertension (principal); E66.01 Morbid (severe) obesity due to excess calories; E11.9 Type 2 diabetes mellitus without complications; K21.9 Gastro-esophageal reflux disease without esophagitis; G47.30 Sleep apnea, unspecified
CPT/HCPCS: 36415; 71046; 85025

== ENCOUNTER → 2020-03-24 | Outpatient (CLI) | payer MEDICARE ==
[2020-03-24 12:13] LABS: ANION GAP 10 (5-19); BLOOD UREA NITROGEN 26 mg/dL (7-20); CALCIUM 9.7 mg/dL (8.4-10.2); CARBON DIOXIDE 27 mmol/L (22-30); CHLORIDE 98 mmol/L (98-107); GLUCOSE 203 mg/dL (75-110); POTASSIUM 4.4 mmol/L (3.6-5.0)
== END ==
LOC: OD 10:35
PROVIDERS: ATTEND Surgery
DX: Z01.812 Encounter for preprocedural laboratory examination (principal); E66.01 Morbid (severe) obesity due to excess calories; G47.30 Sleep apnea, unspecified; E11.9 Type 2 diabetes mellitus without complications; I10 Essential (primary) hypertension; K21.9 Gastro-esophageal reflux disease without esophagitis
CPT/HCPCS: 36415; 80048; 84443